=== PATIENT | male | born 1965 | race African-American/Black ===

== ENCOUNTER 2017-03-31 15:48 | Emergency (ER) | payer SELFPAY ==
[~2017-03-31] VITALS: Ht 175.3 cm; Wt 75.9 kg
[2017-03-31] MEDS ORDERED: NORCOTAB PO (16:18)
[2017-03-31] MEDS ORDERED: PENI500T PO (16:18)
[2017-03-31 17:03] VITALS: BP 121/65
== END 2017-03-31 17:05 | disposition home or self-care (01) ==
LOC: M ED 15:48
DX: R68.84 Jaw pain (principal); K08.89 Other specified disorders of teeth and supporting structures; J01.90 Acute sinusitis, unspecified; S02.5XXA Fracture of tooth (traumatic), initial encounter for closed fracture; X58.XXXA Exposure to other specified factors, initial encounter; Y92.9 Unspecified place or not applicable; Y93.9 Activity, unspecified; Y99.9 Unspecified external cause status; F17.200 Nicotine dependence, unspecified, uncomplicated

== ENCOUNTER 2017-06-09 14:40 | Emergency (ER) | payer MEDICAID, SELFPAY ==
[2017-06-09] MEDS: AMOXICILLIN 500 MG CAP PO (15:35)
[2017-06-09] MEDS: NORCO, ANEXSIA 5/325MG TABLET (HYDROcodone/ACETAMINOPHEN) PO (15:35)
== END 2017-06-09 15:57 | disposition home or self-care (01) ==
LOC: M ED 14:40
DX: K04.7 Periapical abscess without sinus (principal); K02.9 Dental caries, unspecified; R68.84 Jaw pain; K13.79 Other lesions of oral mucosa; F17.210 Nicotine dependence, cigarettes, uncomplicated
CPT/HCPCS: 99282

== ENCOUNTER 2017-07-07 09:35 | Emergency (ER) | payer OTHER, MEDICAID ==
[2017-07-07 10:30] LABS: INFLUENZA A AMPLIFICATION NEGATIVE (NEGATIVE); INFLUENZA B AMPLIFICATION NEGATIVE (NEGATIVE)
== END 2017-07-07 11:03 | disposition home or self-care (01) ==
LOC: M ED 09:35
DX: J02.0 Streptococcal pharyngitis (principal); R03.0 Elevated blood-pressure reading, without diagnosis of hypertension; F17.200 Nicotine dependence, unspecified, uncomplicated
CPT/HCPCS: 87502

== ENCOUNTER 2017-07-29 09:32 | Emergency (ER) | payer OTHER | END 2017-07-29 10:22 | disposition home or self-care (01) | LOC: M ED 09:32 | DX: J02.0 Streptococcal pharyngitis (principal); F17.210 Nicotine dependence, cigarettes, uncomplicated | CPT/HCPCS: 87880 ==

== ENCOUNTER 2017-09-17 11:13 | Emergency (ER) | payer OTHER | END 2017-09-17 13:43 | disposition home or self-care (01) | LOC: M ED 11:13 | DX: K05.00 Acute gingivitis, plaque induced (principal); K02.9 Dental caries, unspecified; F17.200 Nicotine dependence, unspecified, uncomplicated | CPT/HCPCS: 99283 ==

== ENCOUNTER 2018-01-18 18:40 | Inpatient (IN) | payer OTHER ==
[2018-01-18 20:47] LABS: BASO % 0.3 % (0.0-1.0); EOS % 0.1 % (0.0-3.0); HEMATOCRIT 43.7 % (42.0-52.0); HEMOGLOBIN 14.7 g/dl (13.5-17.5); IMMATURE GRANULOCYTE % 0.3 % (0-3.0); LYMPH # 2.6 10^3/uL (1.5-4.5); LYMPH % 33.8 % (24.0-44.0); MEAN CORPUSCULAR HEMOGLOBIN 30.6 pg (27.0-33.0); MEAN CORPUSCULAR HGB CONC 33.6 g/dl (32.0-36.5); MEAN CORPUSCULAR VOLUME 90.9 fl (80.0-96.0); MONO # 0.8 10^3/uL (0.0-0.8); MONO % 10.8 % (0.0-5.0); NEUTROPHILS # 4.3 10^3/uL (1.8-7.7); NEUTROPHILS % 54.7 % (36.0-66.0); PLATELET COUNT, AUTOMATED 207 10^3/uL (150-450); RED BLOOD COUNT 4.81 10^6/uL (4.30-6.10); WHITE BLOOD COUNT 7.8 10^3/uL (4.0-10.0)
[2018-01-18 21:08] LABS: AMPHETAMINES LEVEL URINE NEGATIVE (NEGATIVE); BARBITURATES URINE NEGATIVE (NEGATIVE); BENZODIAZEPINES URINE NEGATIVE (NEGATIVE); CANNABINOIDS URINE POSITIVE (NEGATIVE); COCAINE METABOLITE URINE POSITIVE (NEGATIVE); METHADONE URINE NEGATIVE (NEGATIVE); OPIATES URINE NEGATIVE (NEGATIVE); PHENCYCLIDINE URINE NEGATIVE (NEGATIVE)
[2018-01-18 21:26] LABS: ALBUMIN 3.7 GM/DL (3.2-5.2); ALBUMIN/GLOBULIN RATIO 0.84 (1.00-1.93); ALKALINE PHOSPHATASE 62 U/L (45-117); ALT/SGPT 36 U/L (12-78); ANION GAP 6 MEQ/L (8-16); AST/SGOT 26 U/L (7-37); BILIRUBIN,DIRECT 0.2 MG/DL (0.0-0.2); BILIRUBIN,TOTAL 0.8 MG/DL (0.2-1.0); BLOOD UREA NITROGEN 8 MG/DL (7-18); CALCIUM LEVEL 8.7 MG/DL (8.5-10.1); CARBON DIOXIDE LEVEL 28 MEQ/L (21-32); CHLORIDE LEVEL 107 MEQ/L (98-107); CREATININE FOR GFR 0.85 MG/DL (0.70-1.30); ETHYL ALCOHOL (ETHANOL) < 0.003 % (0.000-0.010); GLOMERULAR FILTRATION RATE > 60.0 (>56); GLUCOSE, FASTING 93 MG/DL (70-100); POTASSIUM SERUM 3.9 MEQ/L (3.5-5.1); SALICYLATE LEVEL 2.6 MG/DL (5.0-30.0); SODIUM LEVEL 141 MEQ/L (136-145); THYROID STIMULATING HORMONE 0.146 uIU/ML (0.358-3.740); TOTAL PROTEIN 8.1 GM/DL (6.4-8.2)
[2018-01-18 21:33] LABS: ACETAMINOPHEN LEVEL < 2.0 UG/ML (10.0-30.0)
[2018-01-18] MEDS: risperiDONE 2 MG TAB PO (23:45)
[2018-01-19] MEDS ORDERED: traZODone 50 MG TAB PO (01:15)
[2018-01-19] MEDS ORDERED: MOM 30ML SUSPENSION UDC PO (01:15)
[2018-01-19] MEDS ORDERED: MAALOX 30 ML SUSP *UDC PO (01:15)
[2018-01-19] MEDS: THIAMINE 100 MG TAB PO ×3 (02:00→21:20)
[2018-01-19] MEDS: MULTIVITAMINS/MINERALS THERAP 1 TAB PO (08:36)
[2018-01-19] MEDS: FOLIC ACID 1 MG TAB PO (08:36)
[2018-01-19] MEDS: NICOTINE 21MG/24HR 1 EA TRANSDERMAL TD (10:59)
[2018-01-19] MEDS: LORazepam 2 MG TAB PO (18:16)
[2018-01-19] MEDS: MIRTAZAPINE 15 MG TAB PO (21:20)
[2018-01-19] MEDS: risperiDONE 3 MG TAB PO (21:20)
[2018-01-20] MEDS: MULTIVITAMINS/MINERALS THERAP 1 TAB PO (09:21)
[2018-01-20] MEDS: FOLIC ACID 1 MG TAB PO (09:21)
[2018-01-20] MEDS: THIAMINE 100 MG TAB PO ×2 (09:21→22:10)
[2018-01-20] MEDS: NICOTINE 21MG/24HR 1 EA TRANSDERMAL TD (09:22)
[2018-01-20] MEDS: HALOPERIDOL 5 MG TAB PO (18:00)
[2018-01-20] MEDS: MIRTAZAPINE 15 MG TAB PO (22:09)
[2018-01-20] MEDS: risperiDONE 2 MG TAB PO (22:09)
[2018-01-21] MEDS: MULTIVITAMINS/MINERALS THERAP 1 TAB PO (09:36)
[2018-01-21] MEDS: THIAMINE 100 MG TAB PO (09:36)
[2018-01-21] MEDS: NICOTINE 21MG/24HR 1 EA TRANSDERMAL TD (09:36)
[2018-01-21] MEDS: FOLIC ACID 1 MG TAB PO (09:36)
[2018-01-21] MEDS: LORazepam 1 MG TAB PO (09:48)
[2018-01-21 11:55] LABS: FREE THYROXINE INDEX 2.6 % (1.4-3.8); T UPTAKE 32 % (33-40); THYROID STIMULATING HORMONE 0.211 uIU/ML (0.358-3.740)
[2018-01-21] MEDS: LORazepam 2 MG TAB PO (17:07)
[2018-01-21] MEDS: risperiDONE 2 MG TAB PO (21:33)
[2018-01-21] MEDS: MIRTAZAPINE 15 MG TAB PO (21:34)
[2018-01-22] MEDS: MULTIVITAMINS/MINERALS THERAP 1 TAB PO (09:16)
[2018-01-22] MEDS: NICOTINE 21MG/24HR 1 EA TRANSDERMAL TD (09:16)
[2018-01-22] MEDS: FOLIC ACID 1 MG TAB PO (09:16)
[2018-01-22] MEDS: LORazepam 2 MG TAB PO (11:56)
[2018-01-22] MEDS: risperiDONE 2 MG TAB PO (20:29)
[2018-01-22] MEDS: MIRTAZAPINE 15 MG TAB PO (20:29)
[2018-01-22] MEDS: HALOPERIDOL 5 MG TAB PO (20:30)
[2018-01-23] MEDS: FOLIC ACID 1 MG TAB PO (09:29)
[2018-01-23] MEDS: MULTIVITAMINS/MINERALS THERAP 1 TAB PO (09:29)
[2018-01-23] MEDS: NICOTINE 21MG/24HR 1 EA TRANSDERMAL TD (09:30)
[2018-01-23] MEDS: CLOTRIMAZOLE 1% TOPICAL CREAM 30GM TOP ×2 (09:50→21:06)
[2018-01-23] MEDS: LORazepam 2 MG TAB PO (11:02)
[2018-01-23] MEDS: traZODone 50 MG TAB PO (21:05)
[2018-01-23] MEDS: risperiDONE 2 MG TAB PO (21:05)
[2018-01-23] MEDS: NALTREXONE 50 MG TAB PO (21:05)
[2018-01-23] MEDS: MIRTAZAPINE 15 MG TAB PO (21:05)
[2018-01-23] MEDS: ACETAMINOPHEN TAB 650MG DOSE (2X325MG) PO (21:06)
[2018-01-24] MEDS: MULTIVITAMINS/MINERALS THERAP 1 TAB PO (08:16)
[2018-01-24] MEDS: NICOTINE 21MG/24HR 1 EA TRANSDERMAL TD (08:17)
[2018-01-24] MEDS: FOLIC ACID 1 MG TAB PO (08:17)
[2018-01-24] MEDS: CLOTRIMAZOLE 1% TOPICAL CREAM 30GM TOP (08:18)
[2018-01-24] MEDS: HALOPERIDOL 5 MG TAB PO (10:50)
== END 2018-01-24 12:30 | disposition home or self-care (01) | DRG 751 ==
LOC: M ED INP 01-19 01:05 → M PSY 01-19 04:45 → M ED 18:40
DX: F33.3 Major depressive disorder, recurrent, severe with psychotic symptoms (principal); F10.10 Alcohol abuse, uncomplicated; F12.90 Cannabis use, unspecified, uncomplicated; F14.90 Cocaine use, unspecified, uncomplicated; Z79.899 Other long term (current) drug therapy

== ENCOUNTER → 2018-08-08 | Outpatient (CLI) | payer OTHER ==
[~2018-08-08] MED LIST: AMOX500C PO; CEPA5.4L2 MT; IBUP-1022 PO; MIRT30TA3 PO; NALT50TA4 PO; NORCOTAB PO; PENI250REC PO; PENI500T PO; RISP4TAB2 PO; TRAM50TA2 PO; TRAZO50TA PO
== END ==
LOC: M OUTALCOH 08:43
PROVIDERS: ATTEND Psychiatry & Neurology Psychiatry
DX: Z13.89 Encounter for screening for other disorder (principal); F12.20 Cannabis dependence, uncomplicated; F14.10 Cocaine abuse, uncomplicated

== ENCOUNTER 2018-11-19 20:54 | Emergency (ER) | payer OTHER, SELFPAY ==
[~2018-11-19] VITALS: Ht 175.3 cm; Wt 81.8 kg
[~2018-11-19 20:54] MED LIST changes: +HYDR-3715 PO; -NORCOTAB PO; +TRAZ1TAB10 PO; -TRAZO50TA PO
[2018-11-19 21:09] VITALS: BP 117/63
--- NOTE | 2018-11-19 22:06 | REPVR ---
EXAM: US Scrotum and US Duplex Artery and Vein, Scrotum, Complete EXAM DATE/TIME: 11/19/2018 9:53 PM CLINICAL HISTORY: 53 years old, male; Groin pain and scrotum pain; Additional info: Bilat pain TECHNIQUE: Imaging protocol: Real-time ultrasound of the scrotum. Real-time duplex ultrasound scan of the arterial and venous flow of the scrotum with B-mode, color Doppler flow and spectral waveform analysis. Complete exam. COMPARISON: No relevant prior studies available. FINDINGS: Right Testicle: Normal. The testicle measures 4.1 x 2.4 x 2.9 cm. No mass. No torsion. Normal arterial and venous waveforms. Left Testicle: Normal. The testicle measures 4.1 x 2.3 x 3.0 cm. No mass. No torsion. Normal arterial and venous waveforms. Epididymides: There are bilateral epididymal cysts. Scrotum: Normal. IMPRESSION: No acute findings. No evidence of torsion. Electronically signed by: Lori Santana On 11/19/2018 22:06:40 PM
[2018-11-19] MEDS ORDERED: NS 1,000 ML IV ONE (22:45)
[2018-11-19] MEDS ORDERED: KETOROLAC 30 MG/ML VIAL (J1885) IV ONE (22:45)
[2018-11-19 23:30] LABS: BASO % 0.4 % (0.0-1.0); EOS # 0.1 10^3/uL (0.0-0.50); EOS % 1.8 % (0.0-3.0); HEMATOCRIT 43.1 % (42.0-52.0); HEMOGLOBIN 14.1 g/dl (13.5-17.5); LYMPH # 1.9 10^3/uL (1.5-4.5); LYMPH % 41.9 % (24.0-44.0); MEAN CORPUSCULAR HEMOGLOBIN 31.1 pg (27.0-33.0); MEAN CORPUSCULAR HGB CONC 32.7 g/dl (32.0-36.5); MEAN CORPUSCULAR VOLUME 95.1 fl (80.0-96.0); MONO # 0.7 10^3/uL (0.0-0.8); MONO % 15.2 % (0.0-5.0); NEUTROPHILS # 1.8 10^3/uL (1.8-7.7); NEUTROPHILS % 40.5 % (36.0-66.0); PLATELET COUNT, AUTOMATED 232 10^3/uL (150-450); RED BLOOD COUNT 4.53 10^6/uL (4.30-6.10); WHITE BLOOD COUNT 4.5 10^3/uL (4.0-10.0)
[2018-11-19 23:42] LABS: ALBUMIN 3.4 GM/DL (3.2-5.2); ALT/SGPT 39 U/L (12-78); BILIRUBIN,DIRECT 0.1 MG/DL (0.0-0.2); BILIRUBIN,TOTAL 0.2 MG/DL (0.2-1.0); BLOOD UREA NITROGEN 10 MG/DL (7-18); CALCIUM LEVEL 8.9 MG/DL (8.5-10.1); CARBON DIOXIDE LEVEL 29 MEQ/L (21-32); CHLORIDE LEVEL 105 MEQ/L (98-107); CREATININE FOR GFR 1.09 MG/DL (0.70-1.30); GLOMERULAR FILTRATION RATE > 60.0 (>56); GLUCOSE, FASTING 103 MG/DL (70-100); LIPASE 74 U/L (73-393); POTASSIUM SERUM 3.9 MEQ/L (3.5-5.1); SODIUM LEVEL 139 MEQ/L (136-145); TOTAL PROTEIN 7.4 GM/DL (6.4-8.2)
[2018-11-20 01:58] LABS: AMPHETAMINES LEVEL URINE POSITIVE (NEGATIVE); BARBITURATES URINE NEGATIVE (NEGATIVE); BENZODIAZEPINES URINE NEGATIVE (NEGATIVE); CANNABINOIDS URINE POSITIVE (NEGATIVE); COCAINE METABOLITE URINE POSITIVE (NEGATIVE); METHADONE URINE NEGATIVE (NEGATIVE); OPIATES URINE NEGATIVE (NEGATIVE); PHENCYCLIDINE URINE NEGATIVE (NEGATIVE)
[2018-11-20 03:03] LABS: CHLAMYDIA DNA AMPLIFICATION NEGATIVE (NEGATIVE); GC DNA AMPLIFICATION NEGATIVE (NEGATIVE)
== END 2018-11-20 01:32 | disposition left against medical advice (07) ==
LOC: M ED 20:54
DX: N50.811 Right testicular pain (principal); N50.812 Left testicular pain; F17.210 Nicotine dependence, cigarettes, uncomplicated
CPT/HCPCS: 76870; 80048; 80076; 80307; 81001; 83690; 85025; 87086; 87491; 87591; 93041; 93976; 96361; 96374; 99284; J1885

== ENCOUNTER 2018-12-05 21:12 | Emergency (ER) | payer OTHER ==
[~2018-12-05] VITALS: Ht 175.3 cm; Wt 75.9 kg
[2018-12-06] VITALS: BP 130/82
[2018-12-06] MEDS ORDERED: NORCO, ANEXSIA 5/325MG TABLET (HYDROcodone/ACETAMINOPHEN) PO ONE (00:45)
[2018-12-06] MEDS ORDERED: NORC1TAB7 PO (01:13)
[2018-12-06] MEDS ORDERED: IBUP-1022 PO (01:13)
[2018-12-06] MEDS ORDERED: NORCO 5/325MG TABLET (BULK FOR ED) PO ONE (01:30)
--- NOTE | 2018-12-06 08:05 | REP ---
Bilateral hand series: Eight views. History: Pain and swelling. Findings: Four views of the right hand show overall normal mineralization. No fractures seen. There is mild bony hypertrophy and spurring at the distal phalanx of the small finger at the DIP joint. There is slight spurring at the DIP joint of the index finger. There is soft tissue swelling dorsally over the distal metacarpals on the lateral radiograph. No acute fracture or subluxation is seen. Impression: No acute fracture seen in the right hand. Four views of the left hand demonstrate a comminuted slightly impacted fracture of the distal razia metaphyseal region of the second metacarpal. There is associated swelling. There is some shortening. Impression: Comminuted fracture of the distal end of the left second metacarpal. Electronically Signed by Christian Barrios MD 12/06/2018 07:56 A
== END 2018-12-06 01:39 | disposition home or self-care (01) ==
LOC: M ED 21:12
DX: S62.631A Displaced fracture of distal phalanx of left index finger, initial encounter for closed fracture (principal); S60.221A Contusion of right hand, initial encounter; W22.8XXA Striking against or struck by other objects, initial encounter; Y92.008 Other place in unspecified non-institutional (private) residence as the place of occurrence of the external cause; F17.210 Nicotine dependence, cigarettes, uncomplicated

== ENCOUNTER 2019-01-26 17:24 | Emergency (ER) | payer OTHER ==
[~2019-01-26] VITALS: Ht 175.3 cm; Wt 72.7 kg
[~2019-01-26 17:24] MED LIST changes: +NORC1TAB7 PO
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
[2019-01-26] MEDS ORDERED: ACETAMINOPHEN 500 MG TAB PO ONE (19:00)
[2019-01-26 19:15] VITALS: BP 133/70
== END 2019-01-26 19:17 | disposition home or self-care (01) ==
LOC: M ED 17:24
DX: S00.01XA Abrasion of scalp, initial encounter (principal); S42.124A Nondisplaced fracture of acromial process, right shoulder, initial encounter for closed fracture; V18.0XXA Pedal cycle driver injured in noncollision transport accident in nontraffic accident, initial encounter; Y92.9 Unspecified place or not applicable

== ENCOUNTER 2019-03-26 04:46 | Emergency (ER) | payer OTHER ==
[~2019-03-26] VITALS: Ht 175.3 cm; Wt 77.3 kg
[2019-03-26] MEDS ORDERED: NS 1,000 ML IV SCH (04:58)
[2019-03-26 05:29] LABS: BASO % 0.7 % (0.0-1.0); EOS # 0.1 10^3/uL (0.0-0.5); EOS % 1.9 % (0.0-3.0); HEMATOCRIT 45.5 % (42.0-52.0); HEMOGLOBIN 14.4 g/dl (13.5-17.5); LYMPH # 2.5 10^3/uL (1.5-5.0); LYMPH % 60.9 % (24.0-44.0); MEAN CORPUSCULAR HEMOGLOBIN 30.1 pg (27.0-33.0); MEAN CORPUSCULAR HGB CONC 31.6 g/dl (32.0-36.5); MEAN CORPUSCULAR VOLUME 95.2 fl (80.0-96.0); MONO # 0.7 10^3/uL (0.0-0.8); MONO % 16.8 % (0.0-5.0); NEUTROPHILS % 19.5 % (36.0-66.0); PLATELET COUNT, AUTOMATED 215 10^3/uL (150-450); RED BLOOD COUNT 4.78 10^6/uL (4.30-6.10); WHITE BLOOD COUNT 4.2 10^3/uL (4.0-10.0)
[2019-03-26 05:57] LABS: NEUTROPHILS # 0.8 10^3/uL (1.5-8.5)
[2019-03-26 06:01] LABS: ACETAMINOPHEN LEVEL < 2.0 UG/ML (10.0-30.0); ALBUMIN 3.8 GM/DL (3.2-5.2); ALT/SGPT 56 U/L (12-78); BILIRUBIN,DIRECT < 0.1 MG/DL (0.0-0.2); BILIRUBIN,TOTAL 0.6 MG/DL (0.2-1.0); BLOOD UREA NITROGEN 13 MG/DL (7-18); CALCIUM LEVEL 8.5 MG/DL (8.5-10.1); CARBON DIOXIDE LEVEL 27 MEQ/L (21-32); CHLORIDE LEVEL 106 MEQ/L (98-107); CPK CREATINE PHOSPHOKINASE 910 U/L (39-308); CREATININE FOR GFR 0.99 MG/DL (0.70-1.30); ETHYL ALCOHOL (ETHANOL) < 0.003 % (0.000-0.010); GLOMERULAR FILTRATION RATE > 60.0 (>56); GLUCOSE, FASTING 63 MG/DL (70-100); POTASSIUM SERUM 5.5 MEQ/L (3.5-5.1); SALICYLATE LEVEL < 1.7 MG/DL (5.0-30.0); SODIUM LEVEL 138 MEQ/L (136-145); THYROID STIMULATING HORMONE 0.138 uIU/ML (0.358-3.740); TOTAL PROTEIN 8.3 GM/DL (6.4-8.2)
[2019-03-26] MEDS ORDERED: QUET1TAB7 PO (07:57)
[2019-03-26 09:36] VITALS: BP 124/75
--- NOTE | 2019-03-26 20:14 | ECGEPIP ---
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
== END 2019-03-26 10:03 | disposition home or self-care (01) ==
LOC: M ED 04:46
DX: R41.0 Disorientation, unspecified (principal); F12.10 Cannabis abuse, uncomplicated; I45.19 Other right bundle-branch block
CPT/HCPCS: 36415; 80048; 80076; 82550; 84443; 85025; 93005; 93041; 94760; 99285; G0480

== ENCOUNTER 2020-02-12 12:51 | Emergency (ER) | payer MEDICAID, OTHER ==
[~2020-02-12] VITALS: Ht 175.3 cm; Wt 83.0 kg
[~2020-02-12 12:51] MED LIST changes: +QUET1TAB7 PO
--- NOTE | 2020-02-12 14:02 | REPVR ---
PROCEDURE INFORMATION: Exam: XR Right Foot Complete Exam date and time: 02/12/2020 12:58 PM Age: 54 years old Clinical indication: Pain; Foot; Right; Additional info: Injury TECHNIQUE: Imaging protocol: XR Right foot. Views: 3 or more views. COMPARISON: No relevant prior studies available. 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 Large plantar calcaneal spur is present. No active erosions or active periostitis. Questionable small minimally displaced corner fracture which is intra-articular at the lateral aspect of the base of the 1st distal phalanx. Soft tissues: Normal. IMPRESSION: 1. Questionable small minimally displaced intra-articular corner fracture at the lateral aspect of the base of the 1st distal phalanx. 2. Moderate osteoarthritis at the 1st MTP joint. 3. Large calcaneal spur. Electronically signed by: Sobia Unger On 02/12/2020 14:02:41 PM
[2020-02-12 15:13] VITALS: BP 123/77
== END 2020-02-12 15:15 | disposition home or self-care (01) ==
LOC: M ED 12:51
DX: S92.401A Displaced unspecified fracture of right great toe, initial encounter for closed fracture (principal); M77.31 Calcaneal spur, right foot

== ENCOUNTER → 2020-04-08 | Outpatient (CLI) | payer OTHER | LOC: M OUTALCOH 09:14 | PROVIDERS: ATTEND Psychiatry & Neurology Addiction Medicine | DX: F11.20 Opioid dependence, uncomplicated (principal) ==

== ENCOUNTER → 2020-04-19 | Outpatient (RCR) | payer OTHER ==
[~2020-04-19] MED LIST changes: +RISP-11 PO; -RISP4TAB2 PO
== END ==
LOC: M OUTALCOH 14:49
PROVIDERS: ATTEND Psychiatry & Neurology Addiction Medicine
DX: F12.20 Cannabis dependence, uncomplicated (principal); F15.20 Other stimulant dependence, uncomplicated; F11.20 Opioid dependence, uncomplicated; F17.200 Nicotine dependence, unspecified, uncomplicated

== ENCOUNTER 2020-05-12 08:45 | Outpatient (RCR) | payer OTHER | END 2020-05-20 | LOC: M OUTALCOH 08:45 | PROVIDERS: ATTEND Psychiatry & Neurology Addiction Medicine | DX: F12.20 Cannabis dependence, uncomplicated (principal); F15.20 Other stimulant dependence, uncomplicated; F11.20 Opioid dependence, uncomplicated; F17.200 Nicotine dependence, unspecified, uncomplicated ==

== ENCOUNTER 2023-08-05 18:55 | Emergency (ER) | payer MEDICAID, OTHER, SELFPAY ==
[~2023-08-05] VITALS: Ht 188 cm; Wt 90.9 kg
[~2023-08-05 18:55] MED LIST changes: +QUET1TAB17 PO; -QUET1TAB7 PO; -RISP-11 PO; +RISP4TAB95 PO
[2023-08-05 19:32] LABS: HEMATOCRIT 45.2 % (42.0-52.0); HEMOGLOBIN 15.2 g/dl (13.5-17.5); MEAN CORPUSCULAR HEMOGLOBIN 30.3 pg (27.0-33.0); MEAN CORPUSCULAR HGB CONC 33.6 g/dl (32.0-36.5); PLATELET COUNT, AUTOMATED 179 10^3/uL (150-450); RED BLOOD COUNT 5.02 10^6/uL (4.30-6.10); WHITE BLOOD COUNT 5.3 10^3/uL (4.0-10.0)
[2023-08-05 19:49] LABS: ETHYL ALCOHOL (ETHANOL) 0.005 % (0.000-0.010)
[2023-08-05 19:51] LABS: ALBUMIN 4.3 G/DL (3.2-5.2); ALKALINE PHOSPHATASE 79 U/L (46-116); ALT/SGPT 35 U/L (7.0-40); AST/SGOT 73 U/L (<34); BILIRUBIN,DIRECT 0.3 MG/DL (<0.4); BILIRUBIN,TOTAL 0.8 MG/DL (0.3-1.2); BLOOD UREA NITROGEN 21 MG/DL (9-23); CARBON DIOXIDE LEVEL 27 MMOL/L (20-31); CHLORIDE LEVEL 104 MMOL/L (98-107); CREATININE FOR GFR 1.01 MG/DL (0.70-1.30); GLOMERULAR FILTRATION RATE > 60.0 (>56); GLUCOSE, FASTING 118 MG/DL (60-100); POTASSIUM SERUM 3.8 MMOL/L (3.5-5.1); SALICYLATE LEVEL 3.1 MG/DL (<30); SODIUM LEVEL 138 MMOL/L (136-145); TOTAL PROTEIN 7.3 G/DL (5.7-8.2)
[2023-08-05 19:53] LABS: THYROID STIMULATING HORMONE 0.311 uIU/ML (0.55-4.78)
[2023-08-05] MEDS: diphenhydrAMINE 50MG/ML VIAL IM STA (19:57)
[2023-08-05 20:11] LABS: CPK CREATINE PHOSPHOKINASE 1846 U/L (46-171)
[2023-08-05] MEDS: NS 1,000 ML IV ONE (21:00)
[2023-08-05] MEDS ORDERED: LORazepam 2 MG TAB PO STA (21:52)
[2023-08-05 22:01] LABS: BARBITURATES URINE NEGATIVE (NEGATIVE); BENZODIAZEPINES URINE NEGATIVE (NEGATIVE); COCAINE METABOLITE URINE NEGATIVE (NEGATIVE); METHADONE URINE NEGATIVE (NEGATIVE); OPIATES URINE NEGATIVE (NEGATIVE); PHENCYCLIDINE URINE NEGATIVE (NEGATIVE)
[2023-08-05 22:03] LABS: AMPHETAMINES LEVEL URINE POSITIVE (NEGATIVE); CANNABINOIDS URINE POSITIVE (NEGATIVE)
[2023-08-05] MEDS: LORazepam 2 MG/ML 1ML VIAL IV STA (22:15)
[2023-08-05] MEDS: OLANZapine INTRAMUSCULAR 10MG VIAL IM ONE (22:49)
[2023-08-05] MEDS ORDERED: HOME MED LIST COMPLETE! XX SCH (22:50)
[2023-08-06 12:01] VITALS: BP 86/55; TEMP 97.7; O2SAT 100
== END 2023-08-06 12:31 | disposition home or self-care (01) ==
LOC: EDBD 18:55 → M ED 18:55
DX: F15.159 Other stimulant abuse with stimulant-induced psychotic disorder, unspecified (principal); F12.10 Cannabis abuse, uncomplicated; F10.10 Alcohol abuse, uncomplicated
CPT/HCPCS: 80048; 80076; 80143; 80307; 82077; 82550; 84443; 85027; 87635; 96361; 96372; 96374; 99285; J1200; J2060; J2359

== ENCOUNTER 2023-12-13 13:27 | Emergency (ER) | payer MEDICAID, SELFPAY ==
[~2023-12-13] VITALS: Ht 175.3 cm; Wt 80.4 kg
[2023-12-13 17:39] VITALS: BP 121/82; TEMP 96.5; O2SAT 100
[2023-12-13] MEDS ORDERED: PERM5CRE9 TOP (18:16)
== END 2023-12-13 18:29 | disposition home or self-care (01) ==
LOC: M ED 13:27
DX: B86 Scabies (principal); W57.XXXA Bitten or stung by nonvenomous insect and other nonvenomous arthropods, initial encounter; F41.9 Anxiety disorder, unspecified; F32.A Depression, unspecified; F12.10 Cannabis abuse, uncomplicated; F17.210 Nicotine dependence, cigarettes, uncomplicated; F15.10 Other stimulant abuse, uncomplicated; F19.10 Other psychoactive substance abuse, uncomplicated

== ENCOUNTER 2023-12-16 17:39 | Emergency (ER) | payer MEDICAID ==
[~2023-12-16] VITALS: Ht 175.3 cm; Wt 72.7 kg
[~2023-12-16 17:39] MED LIST changes: +PERM5CRE9 TOP
[2023-12-16 17:40] VITALS: BP 129/81; TEMP 96; O2SAT 100
[2023-12-16 19:46] LABS: BASO % 0.5 % (0.0-1.0); EOS # 0.1 10^3/uL (0.0-0.5); EOS % 2.1 % (0.0-3.0); HEMATOCRIT 39.7 % (42.0-52.0); HEMOGLOBIN 13.1 g/dl (13.5-17.5); LYMPH # 1.4 10^3/uL (1.5-5.0); LYMPH % 36.8 % (24.0-44.0); MEAN CORPUSCULAR HEMOGLOBIN 30.3 pg (27.0-33.0); MEAN CORPUSCULAR VOLUME 91.7 fl (80.0-96.0); MONO # 0.6 10^3/uL (0.0-0.8); MONO % 15.9 % (2.0-8.0); NEUTROPHILS # 1.7 10^3/uL (1.5-8.5); NEUTROPHILS % 44.4 % (36.0-66.0); PLATELET COUNT, AUTOMATED 247 10^3/uL (150-450); RED BLOOD COUNT 4.33 10^6/uL (4.30-6.10); WHITE BLOOD COUNT 3.9 10^3/uL (4.0-10.0)
[2023-12-16 20:06] LABS: BARBITURATES URINE NEGATIVE (NEGATIVE)
[2023-12-16 20:07] LABS: METHADONE URINE NEGATIVE (NEGATIVE); OPIATES URINE NEGATIVE (NEGATIVE); PHENCYCLIDINE URINE NEGATIVE (NEGATIVE)
[2023-12-16 20:08] LABS: BENZODIAZEPINES URINE NEGATIVE (NEGATIVE); ETHYL ALCOHOL (ETHANOL) < 0.003 % (0.000-0.010)
[2023-12-16 20:10] LABS: ALBUMIN 3.4 G/DL (3.2-5.2); ALKALINE PHOSPHATASE 97 U/L (46-116); ALT/SGPT 26 U/L (7.0-40); AST/SGOT 27 U/L (<34); BILIRUBIN,DIRECT 0.1 MG/DL (<0.4); BILIRUBIN,TOTAL 0.4 MG/DL (0.3-1.2); BLOOD UREA NITROGEN 12 MG/DL (9-23); CARBON DIOXIDE LEVEL 29 MMOL/L (20-31); CHLORIDE LEVEL 110 MMOL/L (98-107); CREATININE FOR GFR 0.85 MG/DL (0.70-1.30); GLOMERULAR FILTRATION RATE > 60.0 (>56); GLUCOSE, FASTING 115 MG/DL (60-100); POTASSIUM SERUM 4.3 MMOL/L (3.5-5.1); SALICYLATE LEVEL < 3.0 MG/DL (<30); SODIUM LEVEL 141 MMOL/L (136-145); TOTAL PROTEIN 7.1 G/DL (5.7-8.2)
[2023-12-16 20:11] LABS: AMPHETAMINES LEVEL URINE POSITIVE (NEGATIVE); CANNABINOIDS URINE POSITIVE (NEGATIVE); COCAINE METABOLITE URINE POSITIVE (NEGATIVE)
[2023-12-16 20:13] LABS: THYROID STIMULATING HORMONE 0.119 uIU/ML (0.55-4.78)
[2023-12-16] MEDS ORDERED: HYDR1CRE30 TOP (21:39)
[2023-12-16] MEDS: HYDROCORTISONE 1% CREAM 30GM TOP ONE (21:45)
== END 2023-12-16 21:52 | disposition home or self-care (01) ==
LOC: M ED 17:39
DX: L27.8 Dermatitis due to other substances taken internally (principal); F29 Unspecified psychosis not due to a substance or known physiological condition; F19.10 Other psychoactive substance abuse, uncomplicated; I45.19 Other right bundle-branch block; I45.81 Long QT syndrome; F32.A Depression, unspecified; F17.210 Nicotine dependence, cigarettes, uncomplicated; F10.10 Alcohol abuse, uncomplicated; Z79.899 Other long term (current) drug therapy

== ENCOUNTER 2024-04-03 15:20 | Emergency (ER) | payer MEDICAID, OTHER ==
[~2024-04-03] VITALS: Ht 175.3 cm; Wt 76.3 kg
[~2024-04-03 15:20] MED LIST changes: +HYDR1CRE30 TOP
[2024-04-03 15:24] VITALS: BP 135/75; TEMP 98.9; O2SAT 100
== END 2024-04-03 17:25 | disposition left against medical advice (07) ==
LOC: M ED 15:20
DX: Z53.21 Procedure and treatment not carried out due to patient leaving prior to being seen by health care provider (principal)

== ENCOUNTER 2024-08-25 17:21 | Emergency (ER) | payer OTHER ==
[~2024-08-25] VITALS: Ht 175.3 cm; Wt 75.1 kg
[2024-08-25 17:37] VITALS: BP 120/76; TEMP 99.4; O2SAT 97
[2024-08-25 19:26] LABS: HEMOGLOBIN 12.9 g/dl (13.5-17.5); MEAN CORPUSCULAR HEMOGLOBIN 29.8 pg (27.0-33.0); MEAN CORPUSCULAR HGB CONC 33.1 g/dl (32.0-36.5); MEAN CORPUSCULAR VOLUME 90.1 fl (80.0-96.0); PLATELET COUNT, AUTOMATED 254 10^3/uL (150-450); RED BLOOD COUNT 4.33 10^6/uL (4.30-6.10); WHITE BLOOD COUNT 4.8 10^3/uL (4.0-10.0)
[2024-08-25 19:41] LABS: ERYTHROCYTE SEDIMENTATION RATE 41 mm/hr (0-20)
[2024-08-25 19:53] LABS: BLOOD UREA NITROGEN 13 MG/DL (9-23); C REACTIVE PROTEIN QUANTITATIV 0.73 MG/DL (<1.0); CALCIUM LEVEL 8.7 MG/DL (8.5-10.1); CARBON DIOXIDE LEVEL 27 MMOL/L (20-31); CHLORIDE LEVEL 106 MMOL/L (98-107); CREATININE FOR GFR 0.77 MG/DL (0.70-1.30); GLOMERULAR FILTRATION RATE > 60.0 (>56); GLUCOSE, FASTING 101 MG/DL (60-100); POTASSIUM SERUM 4.2 MMOL/L (3.5-5.1); SODIUM LEVEL 140 MMOL/L (136-145); URIC ACID 5.5 MG/DL (3.7-9.2)
[2024-08-25 20:16] LABS: ATYPICAL LYMPH 9 % (0-5); BASOPHILS 1 % (0-1); EOSINOPHILS 2 % (0-3); LYMPHOCYTES 38 % (16-44); MONOCYTES 3 % (0-5); NEUTROPHILS 47 % (28-66); PLATELET ESTIMATE NORMAL (NORMAL)
== END 2024-08-25 21:47 | disposition left against medical advice (07) ==
LOC: M ED 17:21
DX: Z53.21 Procedure and treatment not carried out due to patient leaving prior to being seen by health care provider (principal)